=== PATIENT | female | born 1965 | race Caucasian/White ===

== ENCOUNTER 2024-01-11 18:54 | Emergency (ER) | payer OTHER, SELFPAY ==
[2024-01-11 19:02] VITALS: BP 131/96
[2024-01-11] MEDS: PERCOCET 5/325 1 TABLET PO ×2 (19:53→22:14)
[2024-01-11] MEDS: MOTRIN 600 MG PO (19:54)
--- NOTE | 2024-01-11 20:55 | ED.GENMED ---
History of Present Illness
<CON Gallegos Last Filed: 01/12/24 01:06>
General
Chief Complaint: Fall
Source: patient
Exam Limitations: none
Time Seen by Provider: 01/11/24 19:22
Nursing documentation reviewed up to this point in time: agreed with
History of Present Illness
History of Present Illness:
58 Y/O F
no sig pmh
8 days ago she slipped while in the shower
hit her right ribs lateral on the divider and fell onto buttocks
had right rib soreness and coccyx pain but the symptoms were mild
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
until today at 3 pm she had been lifting weights 45 pounds lunges etc and felt ok but then bent over to hand something to her and suddenly got severe pain right ribs that it hurts to change positions and take deep breaths
she doenst otherwise feel SOB
no hematuria, nausea, vomitng, fever, chills, abdominal pain
pt didn't try anything for pain
coccyx is still sore but very manageable;
Past History
<CON Gallegos Last Filed: 01/12/24 01:06>
Past History
ED Past Medical History: None
ED Past Surgical History: None
Social History
Tobacco: Non-smoker
Alcohol: Occasional
Drug: None
Personal:
Living: with family
Employment: Employed
Review of Systems
<CON Gallegos Last Filed: 01/12/24 01:06>
Review of Systems
Allergies reviewed?: Yes
All Other Systems: Not applicable
Phy Exam
<CON Gallegos Last Filed: 01/12/24 01:06>
Physical Exam
Physical Exam:
GENERAL: Alert , in no apparent distress
HEAD: NCAT
NECK: no midline tenderness, active ROM intact, no paraspinal muscle tenderness;
EYE: pupils equal and reactive, EOMs intact.
ENT: o/p clr, mmm. no hemotympanum
CARDIAC: Regular rate and rhythm, no edema
right lateral lower ribs 8 tender right lateral and ant axillary line;
no deformity
LUNGS: Clear breath sounds bilaterally, no acute respiratory distress, no wheezes/rales/rhonchi
ABDOMEN: Soft, without focal tenderness, no r/g, no cvat
no RUQ tendnress
no cva tndneress
NEUROLOGICAL: Alert and oriented, no focal neuro deficits, CN intact, 5/5 strength, sensation intact
SKIN: Warm and dry,
MUSCULOSKELETAL: No edema, well perfused.
coccyx mild tendenress
full ROM o flegs
PSYCH: Normal and appropriate interaction.
Course
<Shasta De León PA-C - Last Filed: 01/12/24 01:06>
Orders/Labs/Results
Orders:
Orders
01/11/24 19:50
Ibuprofen [Motrin] 600 mg PO NOW STA
Oxycodone/Acetaminophen [Percocet 5/325] 1 tablet PO NOW STA
CR Sacrum/coccyx Min 2 View Urgent
Comment:
Reason For Exam: fall 5 days ago
Ribs, Right 3 View W/PA Chest [CR Ribs-right 3 Vw W/pa Chest*] Urgent
Comment:
Reason For Exam: fall 5 days ago, suddenly worse today
01/11/24 22:09
Oxycodone/Acetaminophen [Percocet 5/325] 1 tablet PO NOW STA
01/11/24 22:11
Lidocaine [Lidocaine 4% Patch] 1 patch TOPICAL NOW STA
01/11/24 22:14
Incentive Spirometry [Rx Incentive Spirometry] [RESP] Urgent
Frequency: q1h while awake
Vital Signs
Initial and Last Documented VS:
Initial Vital Signs
Temp Pulse Resp BP Pulse Ox
98.5 F 87 18 131/96 98
01/11/24 19:02 01/11/24 19:02 01/11/24 19:02 01/11/24 19:02 01/11/24 19:02
Last Documented Vital Signs
Temp Pulse Resp BP Pulse Ox
98.5 F 80 16 117/86 99
01/11/24 19:02 01/11/24 22:10 01/11/24 22:10 01/11/24 22:10 01/11/24 22:10
<Luis Antonio Tracy, - Last Filed: 01/11/24 22:32>
Orders/Labs/Results
Orders:
Orders
01/11/24 19:50
Ibuprofen [Motrin] 600 mg PO NOW STA
Oxycodone/Acetaminophen [Percocet 5/325] 1 tablet PO NOW STA
CR Sacrum/coccyx Min 2 View Urgent
Comment:
Reason For Exam: fall 5 days ago
Ribs, Right 3 View W/PA Chest [CR Ribs-right 3 Vw W/pa Chest*] Urgent
Comment:
Reason For Exam: fall 5 days ago, suddenly worse today
01/11/24 22:09
Oxycodone/Acetaminophen [Percocet 5/325] 1 tablet PO NOW STA
01/11/24 22:11
Lidocaine [Lidocaine 4% Patch] 1 patch TOPICAL NOW STA
01/11/24 22:14
Incentive Spirometry [Rx Incentive Spirometry] [RESP] Urgent
Frequency: q1h while awake
Vital Signs
Initial and Last Documented VS:
Initial Vital Signs
Temp Pulse Resp BP Pulse Ox
98.5 F 87 18 131/96 98
01/11/24 19:02 01/11/24 19:02 01/11/24 19:02 01/11/24 19:02 01/11/24 19:02
Last Documented Vital Signs
Temp Pulse Resp BP Pulse Ox
98.5 F 80 16 117/86 99
01/11/24 19:02 01/11/24 22:10 01/11/24 22:10 01/11/24 22:10 01/11/24 22:10
<Shasta De León PA-C - Last Filed: 01/12/24 01:06>
MDM/Problems Addressed
Differential Diagnosis Includes:
rib pain contusion, fracture, less likely kidney injury, liver lac, PTX
MDM/Problems Addressed:
58 y/o F mechanical fall last week onto right ribs and buttocks
pain in these areas
no loc
pain was manageable without meds, able to work
did some exercise with weight lifting today and then bent down to reach and felt sudden pain in her right ribs lower lateral and it is very positional, worse with deep breathing and very tender to palpate
comfortable at rest without SOB
no fever
no hematuria
no belly tenderness
cxr/rib series indep reviewed, no obvious fx, no ptx
appreciate ddd in thoracic and lumbar spine
pt given percocet which hleped some
requesting 2nd dose for sleep tonight
motrin, lidocaine patch
seen by ed attending who agrees
<Shasta De León PA-C - Last Filed: 01/12/24 01:06>
*Critical Care Note
Total Time (30-74mins, 75-104mins- exclusive of procedures): Not Applicable
ED Attending Note
<Shasta De León PA-C - Last Filed: 01/12/24 01:06>
-
Portions of this chart may have been created with voice recognition software.� Occasional wrong word or��sound alike� substitutions may have occurred due to the inherent limitations of voice recognition software.
<Luis Antonio Tracy, DO - Last Filed: 01/11/24 22:32>
ED Attending Note
Patient seen and examined by attending physician: Yes
ED Attending Note:
Pleasant 58-year-old female who presents with right rib pain. She states that she fell approximately 8 days ago hitting her ribs. Today she was lifting weights when the pain returned. Rib series x-rays were negative. Patient received incentive
spirometer. have seen this patient in conjunction with the [facility]. I have reviewed and agree with her history and treatment plan. Patient is awake, alert, and oriented x 3 with no respiratory distress. She is moving all 4 extremities. Able to
answer questions appropriately.
Discharge Plan
Departure
Patient Disposition: Home (Routine Discharge)
Date of Disposition: 01/11/24
Time of Disposition: 22:09
Patient with high blood pressure during this ER visit?: No
Condition: Fair
Covid-19: Not Applicable
Discharge Problem:
Degenerative disc disease, Contusion of rib
Instructions: Contusion (DC), Degenerative Disc Disease ED
Prescriptions:
New
oxycodone 5 mg tablet
5 mg PO Q8H PRN (Reason: Pain) Qty: 14 0RF
ibuprofen 600 mg tablet
600 mg PO Q8H PRN (Reason: Pain) Qty: 20 0RF
lidocaine 5 % adhesive patch,medicated
1 patch topical DAILY PRN (Reason: pain) Qty: 15 0RF
Rx Instructions:
12 hours on 12 hours off
Referrals:
NONE,* [Family Provider] -
Stand Alone Forms: Return to Work
Activity Restrictions/Additional Instructions:
YOU MAY HAVE BROKEN A RIB
YOUR XRAY DID NOT SHOW ANY OBVIOUS BREAK BUT THIS CAN SOMETIMES MISS SUBTLE BREAKS
LEAVE THE PATCH ON 12 HOURS, THEN REMOVE FOR 12 HOURS
USE HEAT OR ICE WHEN THE PATCH IS OFF
TAKE TYLENOL 3 TIMES A DAY FOR PAIN
TAKE IBUPROFEN 3 TIMES A DAY FOR PAIN
THEN NEDED FOR SEVERE PAIN USE OXYCODONE 5 MG EVERY 8 HOURS
THIS CAN CAUSE CONSTIPATION, USE A STOOL SOFTENER WHILE YOU ARE ON IT
USE THE INCENTIVE SPIROMETER EVERY 1-2 HOURS WHILE AWAKE, 10 TIMES
THIS CAN TAKE A FEW WEEKS TO HEAL
RETURN FOR WORSENING SYMPTOMS LIKE SHORTNESS OF BREATH, FEVER, RASH, PEEING BLOOD, ABDOMINAL PAIN, VOMITING OR ANY CONCERNS.
Interventions
Interventions:
*Risk Screen - Suicide Last Done: 01/11/24 20:10
*General Assessment Last Done: 01/11/24 20:10
*Neglect/Abuse Screening Last Done: 01/11/24 20:10
ED- Fall Risk Assessment Last Done: 01/11/24 20:10
*ED COVID-19 Vaccine History Last Done: 01/11/24 20:10
*Nursing Disposition Last Done: 01/11/24 22:28
ED-Musculoskeletal Assessment Last Done: 01/11/24 20:20
ED- Neurological Assessment Last Done: 01/11/24 20:20
ED-Skin Assessment Last Done: 01/11/24 20:20
Discharge Date and Time
Discharge Date/Time: 01/11/24 22:28
Print Language: IRISH
[2024-01-11 22:10] VITALS: BP 117/86
[2024-01-11] MEDS: LIDOCAINE 4% PATCH 1 PATCH TOPICAL (22:14)
== END 2024-01-11 22:28 | disposition home or self-care (01) ==
LOC: EMR 18:54
PROVIDERS: EMERGENCY PHYSICIAN Student in an Organized Health Care Education/Training Program
DX: M43.16 Spondylolisthesis, lumbar region (principal); S20.219A Contusion of unspecified front wall of thorax, initial encounter; W19.XXXA Unspecified fall, initial encounter
CPT/HCPCS: 99283; 71101; 72220